=== PATIENT | female | born 1950 | race Caucasian/White ===

== ENCOUNTER 2019-07-05 08:18 | Day surgery (SDC) | payer MEDICARE ==
[~2019-07-05 08:18] MED LIST: CEFAZOLIN SODIUM IN 0.9 % NACL 2 GM/100 ML BAG IV ONE
[2019-07-05] MEDS ORDERED: LACTATED RINGERS 1,000 ML IV ONE (08:22)
[2019-07-05] MEDS ORDERED: BUFFERED LIDOCAINE 10 ML SYRINGE ONE (09:46)
[2019-07-05] MEDS ORDERED: LIDOCAINE-MPF 1% 30 ML VIAL ONE (10:13)
[2019-07-05] MEDS ORDERED: BUPIVACAINE 0.5%-EPI 1:200000 PF 30 ML VIAL ONE (10:14)
--- NOTE | 2019-07-05 10:14 | ANESTHESIA ---
Pre-Anesthesia VS, & Labs - Diagnosis right breast cancer - Procedure right breast lumpectomy with sentinel lymph node biopsy Vital Signs: Temp Pulse Resp BP Pulse Ox 36.1 C L 65 16 143/67 H 98 07/05/19 08:35 07/05/19 08:35 07/05/19 08:35 07/05/19 08:35 07/05/19 08:35 Height 5 ft 4 in Weight (kg) 69 kg - Is Patient ?: No - Lab Results Current Lab Results: Laboratory Tests 07/05/19 08:44: POC Whole Bld Glucose 117 H Lab results reviewed: Yes Home Medications and Allergies Home Medications: Ambulatory Orders Calcium Citrate/Vitamin D3 [Citracal-Vit D3 200 mg-250 Tab] 1 tab PO BID 06/29/19 Cholecalciferol (Vitamin D3) [Vitamin D3] 1,000 unit PO DAILY 06/29/19 Fluticasone [Flonase] 1 sprays QIANA DAILY 06/29/19 Gemfibrozil 600 mg PO BID 06/29/19 metFORMIN [Glucophage] 500 mg PO BIDWM 06/29/19 Calcium Citrate/Vitamin D3 [Citracal-Vit D3 200 mg-250 Tab] 1 tab PO BID 06/29/19 Cholecalciferol (Vitamin D3) [Vitamin D3] 1,000 unit PO DAILY 06/29/19 Fluticasone [Flonase] 1 sprays QIANA DAILY 06/29/19 Gemfibrozil 600 mg PO BID 06/29/19 metFORMIN [Glucophage] 500 mg PO BIDWM 06/29/19 Allergies/Adverse Reactions: Allergies Allergy/AdvReac Type Severity Reaction Status Date / Time crab Allergy vomiting Verified 06/29/19 10:17 adhesive tape AdvReac blisters Verified 06/29/19 10:17 lobster Allergy vomiting Uncoded 06/29/19 10:17 Anes History & Medical History - Medical History Cardiovascular: reports: High cholesterol Pulmonary: reports: Asthma Gastrointestinal: reports: Colon polyps Urinary: reports: Other Musculoskeletal: reports: Gout Endocrine/Autoimmune: reports: Type 2 diabetes Skin: reports: None - Surgical History Eyes Ears Nose Throat (EENT): Tonsil/Adenoidectomy Gynecologic: Endometrial ablation, Other Orthopedic: Spine surgery Exam General: Alert Mouth Opening: Greater than 4 Fingerbreadths Mallampati classification: I Thyromental Distance: 4-6 cm Cardiovascular: Regular rate Plan Anesthesia Type: General Consent for Procedure(s) Verified and Reviewed: Yes Code Status: Attempt Resuscitation ASA classification: 2-Mild systemic disease Is this case an emergency?: No
[2019-07-05] MEDS ORDERED: BUFFERED LIDOCAINE 10 ML SYRINGE IU ONE (11:41)
[2019-07-05] MEDS ORDERED: ONDANSETRON 4 MG/2 ML VIAL IVP ONE (11:43)
[2019-07-05] MEDS ORDERED: ACETAMINOPHEN 1,000 MG/100 ML 100 ML IV ONE (11:43)
[2019-07-05] MEDS ORDERED: DEXAMETHASONE 4 MG/ML VIAL IVP ONE (11:43)
[2019-07-05] MEDS ORDERED: fentaNYL 100 MCG/2 ML VIAL IVP ONE (11:43)
[2019-07-05] MEDS ORDERED: PROPOFOL 200 MG/20 ML VIAL IVP ONE (11:43)
[2019-07-05] MEDS ORDERED: LIDOCAINE-MPF 2% 5 ML VIAL IM ONE (11:43)
[2019-07-05] MEDS ORDERED: MIDAZOLAM 2 MG/2 ML VIAL IVP ONE (11:43)
[2019-07-05] MEDS ORDERED: BUPIVACAINE 0.5% PF 30 ML VIAL INFIL ONE (12:08)
[2019-07-05] MEDS ORDERED: LIDOCAINE 1%-EPI 1:100000 30 ML MDV SUBQ ONE (12:08)
--- NOTE | 2019-07-05 13:07 | OPERATIVE REPORT ---
Operative Report - General Procedure Date: 07/05/19 Planned Procedure: Right breast lumpectomy and sentinel node biopsy following needle localization and mapping Pre-Op Diagnosis: Biopsy-proven right breast cancer Procedure Performed: Same Post Op Diagnosis: Same - Procedure Note Primary Surgeon: Deena Anesthesia Provider: STEPH Anand Anesthesia Technique: General LMA, Local, Regional block Pathology: 1. Pinola node - a single node with 10 second count of 7068 in a background of 8. Room background was 0 2. Right breast lumpectomy specimen marked with a short stitch superior, long stitch anterior, and wire lateral 3. Additional posteromedial margin with short stitch superior, long stitch l ateral, and double stitch anterior 4. Additional anterolateral margin with a short stitch superior, long stitch lateral, and double stitch anterior Estimated Blood Loss (mL): 25 Indications: Biopsy proven right breast cancer Findings: A single sentinel node Complications: None apparent - Other Other Information/Narrative: After obtaining informed consent, the patient is brought to the operating room and placed in supine position on the operating table. Following successful induction of general endotracheal anesthesia, appropriate padding of all bony prominences, and placement appropriate monitors, the right chest and axilla were prepped and draped in the standard surgical fashion. A timeout was held per scope protocol all elements of the surgical safety checklist were followed before, during, and after the procedure. Following infiltration with local anesthetic to create a field block, an incision was created in a natural fold in the axilla just posterior to the wire placement. This was carried down through the skin and subcutaneous tissue to enter the axillary fat pad below. The sentinel node was identified with help of the navigator. It was liberated from all surrounding structures by addressing all lymphatics and vasculature with hemoclips prior to division. It was then delivered into the field. It was noted to have a 10-second count of greater than 7000. The background in the axilla was checked and found to be between 5 and 8. Background in the room was 0. The axilla was then irrigated and checked for hemostasis we continued through the same incision anteriorly to perform a lumpectomy. The wire was followed to a location approximately 6 cm medially from the lateral edge of the breast. The tissue and wire were then removed in a single piece with sharp dissection. The specimen was marked with a short stitch superior and a long stitch anterior. The wire marked the lateral position. The specimen was placed in a container and submitted for specimen radiograph. The radiologist notified us that he was concerned that the renetta-lateral and posterior medial margins might be a little close. We elected at this point to obtain additional margins in both of those locations. We began with the posterior medial margin. The tissue was grasped over the pectoralis muscle and removed with a combination of sharp dissection and Bovie cautery. This tissue was marked again for orientation. It is passed from the table. The anterior lateral margin was obtained in the same way. The tissue was grasped at the site that was desired and liberated from the surrounding structures with a mixture of sharp dissection and cautery. The specimen was marked and passed from the table. The wound was then checked for hemostasis a pectoral block was performed by infiltrating a mixture of local anesthetics and deep to the pectoralis minor muscle as well as in the tissue of the breast and in the anterior portion of the latissimus muscle. The specimen was checked once again for hemostasis the incision was then closed in 2 layers with Vicryl Monocryl suture. All sponge, needle, and instrument counts were correct at the conclusion of the case. Patient tolerated procedure very well she was allowed awaken from anesthesia and taken to the postanesthesia care unit in good condition.
[2019-07-05] MEDS ORDERED: ONDANSETRON 4 MG/2 ML VIAL IVP PRN (13:12)
[2019-07-05] MEDS ORDERED: oxyCODONE 5 MG TABLET PO PRN (13:12)
[2019-07-05] MEDS ORDERED: HYDROmorphone 0.5 MG/0.5 ML SYRINGE IVP PRN (13:12)
--- NOTE | 2019-07-05 15:16 | Ultrasound Report ---
Reason: RIGHT BREAST CA PRE OP FOR RIGHT BREAST LUMPECTOMY Procedure Date: 07/05/2019 Accession Number: [id number] / [id number] Procedure: US - Wire Localization CPT Code: FULL RESULT: EXAM: Wire Localization, Breast Specimen Surgical, Diag Special Views Dig RT DATE: 07/05/2019 11:15 AM CLINICAL HISTORY: RIGHT BREAST CA PRE OP FOR RIGHT BREAST LUMPECTOMY TECHNIQUE: EXAM: Wire Localization, Breast Specimen Surgical, Diag Special Views Dig RT DATE: 07/05/2019 11:15 AM CLINICAL HISTORY: Biopsy-proven right breast malignancy for wire localization and excision. TECHNIQUE: Informed consent was obtained. Preprocedural scanning with ultrasound by the radiologist demonstrated residual mass and biopsy clip in the 10:00 right breast 8 cm from the nipple. The skin site was prepped and draped in usual sterile fashion. Skin and deeper tissues were anesthetized with 5 cc of 1% lidocaine. Under direct sonographic visualization, a 5 cm long Kopans needle wire combination was advanced through the residual mass adjacent to the biopsy marker and the anchoring wire was deployed. Needle was withdrawn and patient was sent for post procedural mammography. Postprocedural mammogram shows the wire tip 1.5 cm distal to the biopsy marker in satisfactory position. Wire was then secured to the patient and patient was sent to the operating room. COMPARISON: Outside mammography ultrasound and MRI 05/25/2019 through 04/05/2018 FINDINGS: Unoriented specimen is returned at 1232 hours. The wire, biopsy marker and postbiopsy changes are contained within the biopsy specimen near the margin of the specimen. Results were called to and discussed with Dr. Shaffer in the operating room. Based on the shape of the lumpectomy specimen, it was determined that the anterior lateral margin was the close margin. Dr. Shaffer took extended margins in the operating room. IMPRESSION: Successful ultrasound-guided wire localization. Final disposition is awaiting histology results of the lumpectomy specimens.
[2019-07-05 15:17] VITALS: BP 145/80
== END 2019-07-05 08:19 | disposition home or self-care (01) ==
LOC: SDS 08:18 → DI 08:18
PROVIDERS: ATTEND Surgery
PROC: 0HBT0ZZ Excision of Right Breast, Open Approach (ICD-10-PCS; principal; 2019-07-05 11:30)
PROC: 07B50ZX Excision of Right Axillary Lymphatic, Open Approach, Diagnostic (ICD-10-PCS; 2019-07-05 11:30)
DX: C50.411 Malignant neoplasm of upper-outer quadrant of right female breast (principal); Z17.0 Estrogen receptor positive status [ER+]; E11.9 Type 2 diabetes mellitus without complications; J45.909 Unspecified asthma, uncomplicated; E78.00 Pure hypercholesterolemia, unspecified; M10.9 Gout, unspecified; Z79.84 Long term (current) use of oral hypoglycemic drugs
CPT/HCPCS: 19285; 19301; 38525; 76098; 77065; 78195; J0131; J0690; J7120